=== PATIENT | male | born 1955 | race Caucasian/White ===

== ENCOUNTER → 2016-03-23 | Outpatient (CLI) | payer OTHER ==
--- NOTE | 2016-03-24 08:41 | US ---
Carotid Ultrasound Study for Cardiovascular Risk Assessment Indication: 60-year-old man for screening. Technique: The distal centimeters of the far wall of the common carotid arteries are assessed with a high-resolution linear transducer. The intima-media thickness (IMT) is measured and an average thic kness is determined on each side. The study is performed with ECG gating and measurements are obtain ed during diastole. Findings: No carotid plaque. Right distal common carotid artery: The maximal thickness of the far carotid wall is 0.87 mm. The sergio n intima-media thickness is 0.86 mm. Left distal common carotid artery: The maximal thickness of the far carotid wall is 0.72. The mean in linh-media thickness is 0.7 mm. Based on the normative data from the Multi-Ethnic Study of Atherosclerosis, the patient's mean intima -media thickness of the right carotid artery corresponds to a carotid age of 75-84 years. The mean th ickness of the right common carotid artery places the patient in the greater than 75th percentile. Impression: Increased risk for cardiovascular disease.
== END ==
LOC: FIMAGING 14:23
PROVIDERS: ATTEND Family Medicine
DX: N52.9 Male erectile dysfunction, unspecified (principal)
CPT/HCPCS: 0126T